=== PATIENT | male | born 1975 | race Caucasian/White ===

== ENCOUNTER 2016-08-31 05:38 | Outpatient (CLI) | payer SELFPAY ==
[2016-08-31 06:10] LABS: BASOPHILS 0.3 % (0-2); EOSINOPHILS 2.6 % (0-7); HEMATOCRIT 51.7 % (42.0-54.0); HEMOGLOBIN 17.6 g/dL (13.5-17.5); IMMATURE GRANULOCYTES 0.3 % (0-5); LYMPHOCYTES 19.2 % (15-50); MCH 31.2 pg (26.0-34.0); MCV 91.7 fL (80.0-100.0); MEAN PLATELET VOLUME 10.8 fL (7.4-10.4); MONOCYTES 10.7 % (2-11); NEUTROPHILS 66.9 % (40-80); PLATELET COUNT 242 10x3/uL (130-400); RBC 5.64 10x6/uL (4.20-6.10); RDW 13.6 % (11.5-14.5); WBC 11.4 10x3/uL (4.8-10.8)
[2016-08-31 06:27] LABS: ALBUMIN 3.7 g/dL (3.4-5.0); ALKALINE PHOSPHATASE 38 U/L (46-116); ALT (SGPT) 35 U/L (10-68); BILIRUBIN - TOTAL 0.73 mg/dL (0.2-1.3); CALC OSMOLALITY 277 mosm/kg (275-300); CALCIUM 8.7 mg/dL (8.5-10.1); CARBON DIOXIDE 28.3 mmol/L (21.0-32.0); CHLORIDE - SERUM 105 mmol/L (98-107); GLUCOSE 96 mg/dL (74-106); POTASSIUM - SERUM 3.8 mmol/L (3.5-5.1); PROTEIN - SERUM 6.9 g/dL (6.4-8.2); SODIUM 140 mmol/L (136-145); UREA NITROGEN 11 mg/dL (7-18); eGFR NON AFRICAN AMERICAN 87 mL/min (90-120)
[2016-08-31 06:51] LABS: CKMB 1.1 U/L (0.0-3.6); CREATINE KINASE 152 UL (21-232)
[2016-08-31 06:52] LABS: TROPONIN-I < 0.017 ng/mL (0.000-0.060)
[2016-08-31] MEDS ORDERED: LOPRESSOR25 MG PO (07:47)
[2016-08-31] MEDS ORDERED: SYNTHROID25 MCG PO (07:48)
[2016-08-31 12:13] LABS: CREATINE KINASE 137 UL (21-232)
[2016-08-31 12:16] LABS: TROPONIN-I < 0.017 ng/mL (0.000-0.060)
== END 2016-08-31 16:45 | disposition home or self-care (01) ==
LOC: D.ER 05:38 → D.M2 07:25
PROVIDERS: Emergency Medicine
DX: I20.0 Unstable angina (principal); I10 Essential (primary) hypertension; Z01.812 Encounter for preprocedural laboratory examination

== ENCOUNTER 2017-01-19 19:13 | Emergency (ER) | payer SELFPAY ==
[2016-08-31 08:09] VITALS: BMI 33.1
[~2017-01-19 19:13] MED LIST: LOPRESSOR25 MG PO; SYNTHROID25 MCG PO
[2017-01-19 19:51] LABS: BASOPHILS 0.2 % (0-2); EOSINOPHILS 3.3 % (0-7); HEMATOCRIT 48.7 % (42.0-54.0); IMMATURE GRANULOCYTES 0.3 % (0-5); LYMPHOCYTES 30.1 % (15-50); MCH 31.4 pg (26.0-34.0); MCHC 34.9 g/dL (31.0-37.0); MEAN PLATELET VOLUME 10.9 fL (7.4-10.4); NEUTROPHILS 57.1 % (40-80); PLATELET COUNT 235 10x3/uL (130-400); RBC 5.41 10x6/uL (4.20-6.10); RDW 13.4 % (11.5-14.5); WBC 9.7 10x3/uL (4.8-10.8)
[2017-01-19 20:07] LABS: ALBUMIN 3.6 g/dL (3.4-5.0); ALKALINE PHOSPHATASE 42 U/L (46-116); ALT (SGPT) 38 U/L (10-68); CALC OSMOLALITY 280 mosm/kg (275-300); CALCIUM 8.8 mg/dL (8.5-10.1); CARBON DIOXIDE 28.5 mmol/L (21.0-32.0); CHLORIDE - SERUM 105 mmol/L (98-107); CREATININE - SERUM 1.1 mg/dL (0.6-1.3); GLUCOSE 122 mg/dL (74-106); PROTEIN - SERUM 6.9 g/dL (6.4-8.2); SODIUM 141 mmol/L (136-145); UREA NITROGEN 11 mg/dL (7-18); eGFR NON AFRICAN AMERICAN 78 mL/min (90-120)
[2017-01-19 20:17] LABS: CHOL - HDL RATIO 4.3 ratio (2.3-4.9); CHOLESTEROL, TOTAL 165 mg/dL (0-200); CKMB 0.1 U/L (0.0-3.6); CREATINE KINASE 105 UL (21-232); HDL CHOLESTEROL 38 mg/dL (32-96); LDL CHOLESTEROL 103 mg/dL (0-100); LDL-HDL RATIO 2.7 ratio (1.5-3.5); TRIGLYCERIDE 120 mg/dL (30-200)
[2017-01-19 20:18] LABS: TROPONIN-I < 0.017 ng/mL (0.000-0.060)
== END 2017-01-19 22:05 | disposition home or self-care (01) ==
LOC: D.ER 19:13
PROVIDERS: Emergency Medicine
DX: R07.89 Other chest pain (principal); I10 Essential (primary) hypertension; E03.9 Hypothyroidism, unspecified

== ENCOUNTER 2017-09-19 01:51 | Observation (INO) | payer SELFPAY ==
[~2017-09-19] VITALS: Ht 188 cm; Wt 111.4 kg
--- NOTE | ~2017-09-19 | HP ---
PATIENT: DRE MOBLEY MEDICAL RECORD: [id number] ACCOUNT: [id number] LOCATION:[address] : 73 ADMISSION DATE: 09/19/17 HISTORY AND PHYSICAL EXAMINATION DIAGNOSES: 1. Left upper quadrant pain radiating to the chest. 2. Hypertension. 3. Hypothyroidism, on replacement. HISTORY OF PRESENT ILLNESS: This is a gentleman who presents with chest pain. It really starts in his left upper quadrant, radiates to his left chest area. It was quite severe around the left upper quadrant. It was a sharp stabbing pain, was not associated with food intake. It was not positional at all. As well this morning, he has had left face numbness and some blurred vision. This is a new problem. The abdominal pain has been present for the past 2 days. He has only a history of cholecystectomy 1 year ago. No other abdominal history. He does have a history of a cardiac catheterization 1 year ago that was with normal vessels. PHYSICAL EXAMINATION: GENERAL APPEARANCE: Well-nourished, well-developed, appears stated age. Level of distress, comfortable. PSYCHIATRIC: Mental status, alert, normal affect. Orientation, oriented to time, place and person. EYES: Lids and conjunctiva, noninjected. No discharge, no pallor. ENT: Lips, teeth, gums, normal dentition. Oropharynx, no cyanosis, no pallor. NECK: Carotid arteries, bilateral normal upstroke, no bruits, no thrills. JUGULAR VEINS: No jugular venous pressure or distention. CERVICAL LYMPH NODES: Nontender, nonenlarged. THYROID: Not enlarged. Nontender. No nodules. LUNGS: Respiratory effort, unlabored. CHEST: Normal curvature. No thoracic deformity. No chest wall tenderness. Percussion, resonant. Auscultation, clear. No wheezes, no rales, no rhonchi. CARDIOVASCULAR: Precordial exam, nondisplaced. No heaves or pericardial thrills. Rate and rhythm, regular. Heart sounds, normal S1, normal S2. No S3, no gallop, no rub. Systolic murmur, not heard. Diastolic murmur, not heard. EXTREMITIES: No cyanosis, no edema. Peripheral pulses, full and equal in all extremities, except as noted. No bruits appreciated. ABDOMEN: Soft, nondistended. Normal aorta. No bruit. Nontender. No masses. Liver, nontender, no hepatomegaly. Spleen, nontender, no splenomegaly. MUSCULOSKELETAL: No joint tenderness. No joint swelling. No erythema. NEUROLOGICAL: Normal gait, normal strength, normal tone. SKIN: Warm and dry. REVIEW OF SYSTEMS: The patient reports easy bruising but reports no swollen glands. The patient reports no fever, no night sweats, no significant weight gain, no significant weight loss. No significant exercise tolerance. The patient reports no dry eyes, no irritation, no vision change. Patient reports no difficulty hearing and no ear pain. Patient reports no frequent nose bleeds or nose and sinus problems. Patient reports on arm pain on exertion. No shortness of breath while lying down. No history of heart murmur. Patient reports no cough, no wheezing or coughing up blood. Patient reports no abdominal pain, no vomiting. Normal appetite. No diarrhea and not vomiting blood. No nausea and no constipation. Patient reports no incontinence. No HISTORY AND PHYSICAL [id number] DRE MOBLEY A difficulty urinating. No hematuria. No increased frequency. Patient reports no muscle aches. No weakness, no arthralgias, no back pain. No swelling of the extremities. Patient reports no abnormal mole, no jaundice, no rashes. Reports no loss of consciousness. No weakness and no numbness. No seizures, dizziness, or headaches. The patient reports no depression, no sleep disturbance, feeling safe in a relationship and no alcohol abuse. Patient reports on fatigue. Reports no runny nose or sinus pressure. No itching, no hives, and no frequent sneezing. OVERALL IMPRESSION: Abdominal pain. No real chest pain. It is centered around his left upper quadrant. We will get an abdominal CT and due to the numbness in the face and the visual disturbances which very well may be positional, looked like he was lying last night in the hospital bed, we will get a head CT as well. Further care depends upon the findings of these studies. TRANSINT:[id number] Voice Confirmation ID: [id number] DOCUMENT ID: [id number] MARYANN HELLER MD at 1242 CC: [id number] DICTATION DATE: 09/19/17911 FEDERAL JUDGE: 09/19/17 1022 [facility] IN [place] [address] [place] [address]
[2017-09-19 04:29] VITALS: BP 101/66; Ht 188 cm; Wt 111.4 kg
[2017-09-19 07:59] VITALS: BP 104/59
[2017-09-19 12:08] VITALS: BP 122/88
== END 2017-09-19 15:11 | disposition home or self-care (01) ==
LOC: D.SDCHOLD 01:51 → OBSVTIME 01:51 → D.SDCHOLD 02:29 → D.M2 02:29 → OBSVTIME 02:29 → D.M2 15:11
DX: R10.12 Left upper quadrant pain (principal); I10 Essential (primary) hypertension; E03.9 Hypothyroidism, unspecified; H53.8 Other visual disturbances; R20.0 Anesthesia of skin

== ENCOUNTER 2019-01-01 02:16 | Observation (INO) | payer OTHER ==
[2019-01-01] VITALS (9 sets, daily range): BP systolic 120–142; BP diastolic 76–97; Ht 188 cm; Wt 118.2 kg
[~2019-01-01] VITALS: Ht 188 cm; Wt 118.2 kg
--- NOTE | ~2019-01-01 | HEMODYNAMI ---
PATIENT:DRE MOBLEY MEDICAL RECORD: [id number] : 73 LOCATION:[address] ADMISSION DATE: 01/01/19 Generatedon:01/02/20198:59 Patient name: DRE MOBLEY Patient #: [id number] : 1975 Date of study: 01/02/2019 Page: Of Hemodynamic Procedure Report Patient Data Patient Demographics Procedure consent was obtained First Name: DRE Gender: Male Last Name: ITZ : 1975 Middle Initial: A Age: 43 year(s) Patient #: [id number] Race: SSN: [id number] Additional ID: [id number] Contact details [address]: [address] [place] [address] State: [place] City: [place] Zip code: [address] Past Medical History Allergies Allergen Reaction Date Comments Reported Other allergy 08/31/2016 dilaudid, penecillin Other allergy 01/02/2019 PCN, DILAUDID, DEMEROL Admission Admission Data Admission Date: 01/01/2019 Admission Time: 4:15 Room #: D.2128 Insurance Payor: Private health insurance [facility] #: [id number] Height (in.): 74 BSA: 2.43 (m2) Height (cm.): 187.96 BMI: 33.4 (kg/m2) Weight (lbs.): 260.15 Weight (kg.): 118 Lab Results Lab Result Date: 01/02/2019 Lab Result Time: 0:00 Biochemistry Name Units Result Min Max BUN mg/dl 9 --(*---)-- 7 18 Creatinine mg/dl 1.1 --(--*-)-- 0.6 1.3 eGFR ml/min 76.05189 *-(----)-- 90 120 NONAFRICAN CBC Name Units Result Min Max Hematocrit % 50.5 --(--*-)-- 42 54 Hemoglobin g/dl 18.2 --(----)*- 13.5 17.5 Procedure Procedure Types Cath Procedure Diagnostic Procedure [facility] w/Coronaries FFR/IVUS FFR Initial Sedation Charges Moderate Sedation up to 15 minutes Procedure Description Procedure Date Procedure Date: 01/02/2019 Procedure Start Time: 8:38 Procedure End Time: 8:56 Procedure Staff Name Function Baudilio Thomas MD Performing Physician Judy Velazquez RT Monitor Ana Hawley RN Nurse Cj Conley RT Scrub Alexia Barroso RT Scrub Procedure Data Cath Procedure Fluoroscopy Diagnostic fluoroscopy Total fluoroscopy Time: 6.4 time: 6.4 min min Diagnostic fluoroscopy Total fluoroscopy dose: 474 dose: 474 mGy mGy Contrast Material Contrast Material Type Amount (ml) Isovue 300 86 Entry Location Entry Primary Successful Side Size Upsize Upsize Entry Closure Salas ccessful Closure Location (Fr) 1 (Fr) 2 (Fr) Remarks Device Remarks Radial Right 6 Fr Mechanical artery Short Compression Estimated blood loss: 10 ml Diagnostic catheters Device Type Used For End Catheter Placement DIAGNOSTIC Eaton 110cm 5 Procedure Fr catheter ([id number]) Procedure Complications No complications Procedure Medications Medication Administration Route Dosage 0.9% NaCl I.V. 100 ml/hr Oxygen etCO2 Nasal cannula 2 l/min Lidocaine 2% added to field 20 Heparin Flush Bag added to field 2 bags (1000units/500ml NS) Radial Cocktail added to field 1 syringe (Verapamil 2mg/Nitro 400mcg/Heparin 1500units) Versed I.V. 2 mg Fentanyl I.V. 50 mcg Hemodynamics Rest BSA: 2.43 (m2) HGB: 18.2 (g/dl) O2 Consumption: Estimated: 304.5 (ml/min) O2 Con sumption indexed: Estimated:125.31 (ml/min/m) Heart Rate: 81 (bpm) Snapshots Pre Cath Intra NCS Post Cath Vital Signs Time Heart Resp SPO2 etCO2 NIBP (mmHg) Rhythm Pain Sedation Rate (ipm) (%) (mmHg) Status Level (bpm) 8:22:00 76 14 99 30.1 152/99(125) NSR 0 (11) 10(A) , No pain 8:26:20 76 17 97 36.1 156/107(126) NSR 0 (11) 10(A) , No pain 8:30:44 79 18 97 43.6 155/86(125) NSR 0 (11) 10(A) , No pain 8:35:10 74 14 98 37.6 168/88(157) NSR 0 (11) 10(A) , No pain 8:39:35 73 16 97 44.4 156/98(130) NSR 0 (11) 9(A) , No pain 8:43:47 80 15 98 43.6 140/90(105) NSR 0 (11) 9(A) , No pain 8:48:07 76 16 99 41 137/91(110) NSR 0 (11) 9(A) , No pain 8:52:27 75 16 98 39.8 151/86(111) NSR 0 (11) 10(A) , No pain Medications Time Medication Route Dose Verified Delivered Reason Notes Ef fectiveness by by 8:29:23 0.9% NaCl I.V. 100 Baudilio Ana used for ml/hr William Hawley fuse coiler 8:29:29 Oxygen etCO2 2 l/min Baudilio Ana used for Nasal William Hawley procedure cannula RN 8:29:35 Lidocaine 2% added 20ml Baudilio Baudilio for local to vial William Thomas MD anesthetic field 8:29:38 Heparin Flush added 2 bags Baudilio Baudilio used for Bag to William Thomas MD procedure (1000units/500ml field NS) 8:29:44 Radial Cocktail added 1 Baudilio Baudilio used for (Verapamil to syringe William Thomas MD procedure 2mg/Nitro field 400mcg/Heparin 1500units) 8:37:43 Versed I.V. 2 mg Baudilio Aan for Wililam Hawley sedation RN 8:37:54 Fentanyl I.V. 50 mcg Baudilio Ana for William Hawley sedation lathe winder Log Time Note 8:01:07 Cj Conley RT(R) sent for patient. Start room use. 8:01:08 Time tracking: Regular hours (M-F 7:00 - 5:00) 8:01:12 Plan of Care:Hemodynamics will remain stable., Cardiac rhythm will remain stable., Comfort level will be maintained., Respiratory function will remain adequate., Patient/ family verbilizes understanding of procedure., Procedure tolerated without complication., Recovers from procedure without complications.. 8:03:36 Procedure Status Urgent Heart Cath (IP). 8:07:05 Lab Result : BUN 9 mg/dl 8:07:05 Lab Result : Creatinine 1.1 mg/dl 8:07:05 Lab Result : eGFR NONAFRICAN 76.39164 ml/min 8:07:05 Lab Result : Hemoglobin 18.2 g/dl 8:07:05 Lab Result : Hematocrit 50.5 % 8:07:14 Patient Weight : 260.15 lbs 8:07:17 Patient Height : 74 inches 8:09:17 Patient allergic to Other allergyPCN, DILAUDID, DEMEROL 8:10:17 Insurance Payor : Private health insurance 8:13:13 Patient received from Med II to CCL 3 Alert and oriented. Tansferred to table in Supine position. 8:13:16 Warm blankets applied, and tang hugger turned on for patient comfort. 8:13:18 Signed procedure consent form obtained from patient. 8:13:19 Correct patient and procedure confirmed by team. 8:13:19 ECG and BP/O2 sat monitors applied to patient. 8:18:34 H&P Date Dictated: 01/01/2019 Within 30 days and on chart.. 8:18:35 Pre-procedure instructions explained to patient. 8:18:35 Pre-op teaching completed and patient verbalized understanding. 8:18:37 Family in patients room. 8:18:38 Patient NPO since Midnight. 8:18:39 Is the patient allergic to Iodine/contrast media? No. 8:18:49 Is patient on blood thinner?No 8:18:52 Patient diabetic? No. 8:19:09 Previous problem with sedation/anesthesia? No ? 8:19:10 Snore? Yes 8:19:11 Sleep apnea? No 8:19:12 Deviated septum? No 8:19:13 Opens mouth fully? Yes 8:19:13 Sticks out tongue? Yes 8:19:15 Airway obstruction? No ? 8:19:17 Dentures? No ? 8:19:24 Pre procedure: right dorsailis pedis pulse 1+ Palpable, but thready & weak; easily obliterated 8:19:27 Modified Smooth's test Ulnar < 7 seconds 8:19:28 Patient pain scale 0/10 ?. 8:19:36 IV patent on arrival in right forearm with 0.9% NaCl at [facility]. 8:19:43 Lab results completed and on chart. 8:19:53 Right Radial & Right Groin area was prepped with chlora-prep and draped in sterile fashion 8:19:54 Alarms reviewed by R. N. 8:19:54 Sharps counted by scrub and verified by R.N. 8:19:59 Use device set Radial Dx or PCI 8:20:00 Tegaderm 4 x 4 ([id number]) opened to sterile field. 8:20:01 ACIST Manifold (38662) opened to sterile field. 8:20:01 ACIST Hand Control (35867) opened to sterile field. 8:20:02 Bag Decanter (2002S) opened to sterile field. 8:20:03 Medline Cath Pack ([id number]) opened to sterile field. 8:20:03 ACIST Syringe (97150) opened to sterile field. 8:20:08 MBrace Wrist Support ([id number]) opened to sterile field. 8:20:15 EMERALD Guide Wire (628-193) opened to sterile field. 8:20:18 SHEATH 6FR RAIN (2337284) opened to sterile field. 8:20:34 Vital chart was started 8:20:37 Baseline sample Acquired. 8:20:40 Rhythm: sinus rhythm 8:20:46 Full Disclosure recording started 8:29:23 0.9% NaCl 100 ml/hr I.V. was administered by Ana Hawley RN; used for procedure; 8:29:29 Oxygen 2 l/min etCO2 Nasal cannula was administered by Ana Hawley RN; used for procedure; 8:29:35 Lidocaine 2% 20ml vial added to field was administered by Baudilio Thomas MD; for local anesthetic; 8:29:38 Heparin Flush Bag (1000units/500ml NS) 2 bags added to field was administered by Baudilio Thomas MD; used for procedure; 8:29:44 Radial Cocktail (Verapamil 2mg/Nitro 400mcg/Heparin 1500units) 1 syringe added to field was administered by Baudilio Thomas MD; used for procedure; 8:30:22 Physician paged 8:36:45 --------ALL STOP TIME OUT------ 8:36:45 Final Timeout: patient, procedure, and site verified with staff and physician. All members of the team are in agreement. 8:36:47 Right Radial & Right Groin site verified by team. 8:36:51 Fire Safety Assessment: A--An alcohol-based skin anteseptic being used preoperatively., C--Open oxygen or nitrous oxide is being used., D--An ESU, laser, or fiber-optic light is being used. 8:36:53 Physical assessment completed. ASA score P 2 - A patient with mild systemic disease as per Baudilio Thomas MD. 8:36:55 2) 60-89 Mildly reduced kidney function, and other findings (as for stage 1) point to kidney disease. 8:37:11 Maximum allowable contrast dose (3.7 X eGFR X 0.75)202 ml. 8:37:14 Sedation plan: IV Moderate Sedation Medication:Versed, Fentanyl 8:37:43 Versed 2 mg I.V. was administered by Ana Hawley RN; for sedation; 8:37:54 Fentanyl 50 mcg I.V. was administered by Ana Hawley RN; for sedation; 8:38:39 Procedure started. 8:38:48 Local anesthetic to right radial artery with Lidocaine 2% by Baudilio Thomas MD.INITIAL ACCESS ONLY 8:39:33 A 6 Fr Short sheath was inserted into the Right Radial artery 8:39:47 A DIAGNOSTIC Eaton 110cm 5 Fr catheter ([id number]) was advanced over the wire and used for Procedure. 8:40:58 LV gram done using CORREIA 8:41:32 Injector settings: Ml/sec: 5, Volume: 15, 8:41:50 EF : 60 % 8:43:03 RCA angiography performed. 8:43:05 Catheter exchanged over wire. 8:43:12 GUIDE 6FR XBLAD 3.5 catheter ([id number]) opened to sterile field. 8:44:10 6 Fr XBLAD 3.5 guide catheter was inserted over the wire 8:45:11 LCA angiography performed. 8:46:10 Oldham Verrata Plus pressure wire (25910C) opened to sterile field. 8:46:10 INFLATOR Merit BasixCompak (SP0746) opened to sterile field. 8:49:42 Guide Catheter removed. unable to cannulate vessel. 8:50:24 6 Fr XBLAD 4 guide catheter was inserted over the wire 8:51:57 FFR/IFR wire advanced. 8:52:13 Wire advanced across lesion. 8:52:51 mLAD lesion measured at .95 with IFR 8:53:03 Wire removed. 8:53:03 Guide catheter removed. 8:53:10 Procedure ended.(Physican Out) 8:53:24 ZEPHYR REGULAR TR BAND (167898) opened to sterile field. 8:53:43 Sheath removed intact; hemostasis achieved with Mechanical Compression to the Right Radial artery. 8:53:50 Fluoroscopy time 06.40 minutes. 8:53:56 Fluoroscopy dose: 474 mGy 8:53:56 Flurop Dose total: 474 8:54:13 Contrast amount:Isovue 300 86ml. 8:54:15 Maximum allowable dose exceeded? No. 8:54:16 Sharps counted by scrub and verified by R.N. 8:54:18 Vina band inflated with 7cc of air. 8:54:20 Post-procedure physical assessment completed. ASA score P 2 - A patient with mild systemic disease as per Baudilio Thomas MD. 8:54:25 Post procedure rhythm: sinus rhythm 8:54:29 Estimated blood loss: 10 ml 8:54:30 Post procedure instruction explained to patient.Patient verbalizes understanding. 8:54:30 Patient needs reinforcement of post procedure teaching. 8:54:53 Procedure type changed to Cath procedure, Diagnostic procedure, LHC, LHC w/Coronaries, FFR/IVUS, FFR Initial, Sedation Charges, Moderate Sedation up to 15 minutes 8:55:38 Procedure and supply charges have been captured, reviewed, submitted and are correct. 8:55:40 Procedure Complication : No complications 8:55:42 Vital chart was stopped 8:56:23 See physician's report for complete and final results. 8:56:37 Report given to Med II. 8:56:40 Patient transfered to Med II with Bed. 8:56:42 Procedure ended. 8:56:42 Full Disclosure recording stopped 8:56:46 End room use (Document Last) Device Usage Item Name Manufacture Quantity Catalog Hospital Part Current Mini mal Lot# / Number Charge Number Stock Stock Serial# Code Tegaderm 4 3M 1 1626W [id number] 5 x 4 (1626W) ACIST Acist 1 30677 851718 989096 602176 5 Manifold Medical (88713) Systems Inc ACIST Hand Acist 1 14931 798199 376425 590942 5 Control Medical (24727) Systems Inc Bag Microtek 1 2001S 079165 08936 131729 5 Decanter Medical Inc. (2001S) Medline Medline 1 [id number] 492330 62703 891630 5 Cath Pack ([id number]) ACIST Acist 1 27991 602862 356067 329536 20 Syringe Medical (53696) Systems Inc MBrace Advanced 1 140-0250-00 049054 54036 529139 5 Wrist Vascular Support Dynamics (279166309) EMERALD Cardinal 1 218-345 879755 883431 693435 5 Guide Wire Health (126-026) SHEATH 6FR Cardinal 1 9760722 730976 2301211 312663 5 RAIN Health (7846686) DIAGNOSTIC Terumo 1 40-9515 601857 158890 121733 5 Eaton 110cm 5 Fr catheter (112785) GUIDE 6FR Cardinal 1 [id number] 560534 590206 810085 10 XBLAD 3.5 Health catheter (48011039) Oldham Oldham 1 80179A 420400 422336050 585270 5 Verrata Plus pressure wire (09490G) INFLATOR Merit 1 OQ9968 636201 393422 959281 15 [facility] Medical BasixCompak (OQ4607) ZEPHYR Cardinal 1 936715 552936 2302887 606451 5 REGULAR TR Health BAND (576806) Signature Audit [place] Stage Time Signature Unsigned Intra-Procedure 01/02/2019 Judy Velazquez 8:59:06 AM RT(R) Signatures Performing Physician : Signature : Baudilio Thomas MD Date : Time : Monitor : Judy Velazquez Signature : RT Date : Time : Nurse : Ana Hawley RN Signature : Date : Time : [address] [place] [address]
[2019-01-01 02:55] LABS: BASOPHILS 0.3 % (0-2); EOSINOPHILS 2.2 % (0-7); HEMATOCRIT 50.5 % (42.0-54.0); HEMOGLOBIN 18.2 g/dL (13.5-17.5); IMMATURE GRANULOCYTES 0.3 % (0-5); LYMPHOCYTES 17.4 % (15-50); MCH 32.3 pg (26.0-34.0); MCV 89.5 fL (80.0-100.0); MEAN PLATELET VOLUME 10.3 fL (7.4-10.4); MONOCYTES 9.9 % (2-11); NEUTROPHILS 69.9 % (40-80); PLATELET COUNT 254 10x3/uL (130-400); RBC 5.64 10x6/uL (4.20-6.10); WBC 14.9 10x3/uL (4.8-10.8)
[2019-01-01 03:06] LABS: APTT 28.6 SECONDS (22.8-39.4); INR 0.98 (0.85-1.17); PROTIME 12.5 SECONDS (11.6-15.0)
[2019-01-01 03:23] LABS: ALBUMIN 3.8 g/dL (3.4-5.0); ALKALINE PHOSPHATASE 52 U/L (46-116); ALT (SGPT) 30 U/L (10-68); AMYLASE - SERUM 31 U/L (25-115); BILIRUBIN - TOTAL 0.55 mg/dL (0.2-1.3); CALC OSMOLALITY 274 mosm/kg (275-300); CARBON DIOXIDE 31.5 mmol/L (21.0-32.0); CHLORIDE - SERUM 100 mmol/L (98-107); CKMB 0.5 U/L (0.0-3.6); CREATINE KINASE 133 UL (21-232); CREATININE - SERUM 1.1 mg/dL (0.6-1.3); GLUCOSE 95 mg/dL (74-106); LIPASE 177 U/L (73-393); MAGNESIUM - SERUM 1.6 mg/dL (1.8-2.4); POTASSIUM - SERUM 3.8 mmol/L (3.5-5.1); PROTEIN - SERUM 7.6 g/dL (6.4-8.2); SODIUM 138 mmol/L (136-145); TROPONIN-I < 0.017 ng/mL (0.000-0.060); UREA NITROGEN 9 mg/dL (7-18); eGFR NON AFRICAN AMERICAN 77 mL/min (90-120)
[2019-01-01 09:42] LABS: CKMB 0.5 U/L (0.0-3.6); CREATINE KINASE 108 UL (21-232); TROPONIN-I < 0.017 ng/mL (0.000-0.060)
[2019-01-01 15:20] LABS: CKMB 0.4 U/L (0.0-3.6); CREATINE KINASE 111 UL (21-232)
[2019-01-01 15:23] LABS: TROPONIN-I < 0.017 ng/mL (0.000-0.060)
[2019-01-02] VITALS: BP 142/92
[2019-01-02 04:00] VITALS: BP 132/87
--- NOTE | 2019-01-02 08:57 | HP ---
PATIENT: DRE MOBLEY MEDICAL RECORD: [id number] ACCOUNT: [id number] LOCATION:[address] : 73 ADMISSION DATE: 01/01/19 PCP: ONDINA AYALA DO HISTORY AND PHYSICAL EXAMINATION ADMITTING DIAGNOSES: 1. Chest pain compatible with angina. 2. Shortness of breath - dyspnea on exertion. 3. Hypertension. 4. Family history of coronary artery disease. HISTORY OF PRESENT ILLNESS: Mr. Mobley was seen by Dr. Bocanegra with increasing episodes of chest discomfort. He was set for a stress test; however, he has had progression of his chest discomfort. He is having episodes at rest at this point. However, his EKG is normal. Troponin is normal. He is on Lopressor. His systolic blood pressure is in the 120s. Heart rate is in the 60s. PHYSICAL EXAMINATION: CONSTITUTIONAL/GENERAL APPEARANCE: Well nourished, well developed, appears stated age. EYES: Lids and conjunctivae noninjected. No discharge. No pallor. ENT: Lips within normal limit. No cyanosis. No pallor. NECK: Carotid arteries, bilateral normal upstroke. No bruits. No thrills. No jugular venous pressure or distention. CERVICAL LYMPH NODES: Nontender. Nonenlarged. THYROID: Not enlarged. No nodules. CARDIOVASCULAR: Precordial exam, nondisplaced. No heaves or pericardial thrills. Rate and rhythm, regular. Heart sounds, normal S1, normal S2. No S3, no gallop, no rub. Systolic murmur, not heard. Diastolic murmur, not heard. RESPIRATORY: Respiratory effort, unlabored. Normal curvature. No thoracic deformity. No chest wall tenderness. Percussion, resonant. Auscultation, clear. No wheezes, no rales, no rhonchi. ABDOMEN: Soft, nondistended, nontender. No abdominal pain, no vomiting and normal appetite. MUSCULOSKELETAL: No joint tenderness, normal gait, normal tone. SKIN: Warm and dry. OVERALL IMPRESSION: Chest pain compatible with angina in an escalating unstable fashion. No objective evidence of hemodynamically significant coronary artery disease. We will risk stratify with stress testing, Cardiolite imaging as the initial plan. Further care depends upon the findings of the stress test. TRANSINT:[id number] Voice Confirmation ID: [id number] DOCUMENT ID: [id number] MARYANN HELLER MD at 0857 CC: [id number] DICTATION DATE: 01/01/19 1016 ARCHITECTURAL JOB CAPTAIN: 01/01/19 1041 ADM IN [place] [id number] [place] [id number]
--- NOTE | 2019-01-02 08:57 | ST ---
PATIENT:DRE MOBLEY MEDICAL RECORD: [id number] SEX: M LOCATION:D. D.212 ORDER #: ADMISSION DATE: 01/01/19 AGE OF PATIENT: 43 REFERRING PHYSICIAN: INTERPRETING PHYSICIAN: MARYANN HELLER MD DATE OF SERVICE: 01/01/2019 PROCEDURE: Nuclear stress test. INDICATION: Progressive angina. He was exercised on standard Lexiscan protocol with 30 mCi of sestamibi injected at peak stress, 10 mCi used previously for rest images. FINDINGS: Gated SPECT reveals preserved ejection fraction at 62% with good wall motioning and thickening and brightening throughout all segments. SPECT Imaging: Cardiolite was used as a myocardial perfusion agent. There is reversibility anteriorly, this includes the basal, mid, and apical anterior segments. The degree of reversibility is mild. The amount of myocardium involved is moderate. OVERALL IMPRESSION: 1. This is an intermediate risk nuclear stress test, reversibility throughout the anteroapical segments. 2. Gated SPECT reveals preserved ejection fraction at 62%. In this patient with ongoing symptomatology, the current scan does suggest the presence of hemodynamically significant coronary artery disease. TRANSINT:[id number] Voice Confirmation ID: [id number] DOCUMENT ID: [id number] MARYANN HELLER MD at 0857 CC: [id number] DICTATION DATE: 01/01/19 1508 COMMERCIAL INTELLIGENCE MANAGER: 01/02/19 0051 ADM IN [place] [id number] [place] [id number]
--- NOTE | 2019-01-02 09:11 | MORECARE ---
CASE MANAGEMENT DISCHARGE SUMMARY PATIENT: DRE MOBLEY UNIT: [id number] ADM DATE: 01/01/19 AGE: 43 : [birth year] SEX: M ROOM/BED: D.2128 AUTHOR: NANCY SANDRA PHYSICIAN: REFERRING PHYSICIAN: MARYANN HELLER MD DATE OF SERVICE: 01/02/19 Discharge Plan Patient Name: DRE MOBLEY Facility: [facility]:[place] : 1975 Planned Disposition: Home Anticipated Discharge Date: 01/02/19 Discharge Date: Expected LOS: 1 Initial Reviewer: [id number] Initial Review Date: 01/02/2019 Generated: 01/02/19 10:11 am Patient Name: DRE MOBLEY Page 42304 at 0911 All edits/amendments must be made on the electronic document DICTATION DATE: 01/02/19910 INSTALLATION SUPERINTENDENT: CARLY 01/02/19910 RPT#: [id number] DC DATE: STATUS: ADM IN [facility] [address] [place] [address] END OF REPORT
[2019-01-02] MEDS ORDERED: PROTONIX40 MG PO (13:13)
[2019-01-02] MEDS ORDERED: CARAFATE1 G PO (13:13)
--- NOTE | 2019-01-03 10:47 | OP ---
PATIENT NAME: DRE MOBLEY MEDICAL RECORD: [id number] :73 LOCATION:D.M2 D.2128 ADMISSION DATE:01/01/19 SURGEON: MARYANN HELLER MD DATE OF OPERATION: 01/02/2019 PROCEDURES: 1. Left heart catheterization. 2. Selective coronary angiography. 3. Left ventriculogram. 4. IFR. INDICATION: Chest pain compatible with angina and abnormal nuclear stress test. PROCEDURE IN DETAIL: After informed consent was obtained and after a detailed description of risks, benefits as well as alternative therapies, the patient elected to proceed with angiogram and heart catheterization. The right radial area was prepped and draped in normal sterile fashion. Right radial artery was cannulated via modified Seldinger technique with placement of 6-Rwandan sheath. All catheters exchanged through this sheath. FINDINGS: The left ventriculogram was performed in standard 30-degree CORREIA view, reveals good cardiac wall motion throughout all segments. Overall ejection fraction estimated 60%. SELECTIVE CORONARY ANGIOGRAPHY: Left main, left anterior descending, left circumflex, right coronary artery are all smooth-walled vessels with no angiographic evidence of coronary artery disease. OVERALL IMPRESSION: 1. No angiographic evidence of coronary artery disease. 2. Normal left heart pressures. 3. Normal left ventricular systolic function. Chest pain is noncardiac in etiology. No further cardiac workup needs to be ascertained. TRANSINT:[id number] Voice Confirmation ID: [id number] DOCUMENT ID: [id number] MARAYNN HELLER MD at 1047 CC: [id number] DICTATION DATE: 01/02/19 0855 HOTEL BREAKFAST ATTENDANT: 01/02/19 0907 DIS IN 01/02/19 [place] [address]
--- NOTE | 2019-01-03 10:47 | OP ---
PATIENT NAME: DRE MOBLEY MEDICAL RECORD: [id number] :73 LOCATION:[id number] ADMISSION DATE:01/01/19 SURGEON: MARYANN HELLER MD DATE OF OPERATION: 01/02/2019 ADDENDUM After selective coronary angiography before impression. IFR was performed of the LAD secondary to the perfusion defect on nuclear stress testing, the anterior IFR was normal. Add IFR to the procedure list. TRANSINT:[id number] Voice Confirmation ID: [id number] DOCUMENT ID: [id number] MARYANN HELLER MD at 1047 CC: [id number] DICTATION DATE: 01/02/19 0857 ELECTRIC POWER SUPERINTENDENT: 01/02/19 0908 DIS IN 01/02/[address] [id number]
--- NOTE | 2019-01-21 10:37 | DS ---
PATIENT:DRE MOBLEY :73 MEDICAL RECORD: [id number] DISCHARGE SUMMARY ADMISSION DATE: 01/01/19 DISCHARGE DATE: 01/02/19 DISCHARGE DIAGNOSES: 1. Chest pain. 2. Abnormal nuclear stress test. 3. Normal cardiac catheterization. HOSPITAL COURSE: Mr. Mobley presents with chest pain and underwent nuclear stress testing for risk stratification. This suggested perfusion defect anteriorly; however, cardiac catheterization was normal. He will follow up with his primary care physician. No other cardiac workup or treatment is necessary. TRANSINT:[id number] Voice Confirmation ID: [id number] DOCUMENT ID: [id number] MARYANN HELLER MD at 1037 CC: [id number] DICTATION DATE: 01/02/19 0856 PEDIATRIC AUDIOLOGIST: 01/03/19 0001 DIS IN 01/02/19 [facility] [address] [place] [address]
== END 2019-01-02 14:23 | disposition home or self-care (01) ==
LOC: D.ER 02:16 → D.M2 04:15 → OBSVTIME 04:15 → D.M2 04:15
PROVIDERS: Family Medicine; ADMIT Internal Medicine Interventional Cardiology; ATTEND Internal Medicine Interventional Cardiology
DX: R07.9 Chest pain, unspecified (principal); R94.39 Abnormal result of other cardiovascular function study; I10 Essential (primary) hypertension; R06.00 Dyspnea, unspecified; Z82.49 Family history of ischemic heart disease and other diseases of the circulatory system

== ENCOUNTER 2019-11-10 05:17 | Day surgery (SDC) | payer BC ==
[~2019-11-10] VITALS: Ht 188 cm; Wt 114.8 kg
[~2019-11-10 05:17] MED LIST changes: +CARAFATE1 G PO; +CELEXA10 MG PO; +COZAAR25 MG PO; +FLOMAX0.4 MG PO; +LOSARTAN-HCTZ1 EAC1 PO; +PROTONIX40 MG PO
[2019-11-10 06:11] LABS: CALC OSMOLALITY 272 mosm/kg (275-300); CALCIUM 8.5 mg/dL (8.5-10.1); CARBON DIOXIDE 27.6 mmol/L (21.0-32.0); CHLORIDE - SERUM 101 mmol/L (98-107); CREATININE - SERUM 1.1 mg/dL (0.6-1.3); GLUCOSE 109 mg/dL (74-106); POTASSIUM - SERUM 3.7 mmol/L (3.5-5.1); SODIUM 136 mmol/L (136-145); UREA NITROGEN 13 mg/dL (7-18); eGFR NON AFRICAN AMERICAN 77 mL/min (90-120)
[2019-11-10 06:12] LABS: HEMATOCRIT 50.9 % (42.0-54.0); HEMOGLOBIN 17.3 g/dL (13.5-17.5); MCH 31.4 pg (26.0-34.0); MCV 92.4 fL (80.0-100.0); RBC 5.51 10x6/uL (4.20-6.10); RDW 13.5 % (11.5-14.5)
[2019-11-10 06:37] VITALS: BP 121/72; Ht 188 cm; Wt 114.8 kg
[2019-11-10] MEDS ORDERED: HYDROCODON-ACE1 EAC7 PO (09:20)
--- NOTE | 2019-11-10 11:55 | NUR ---
PATIENT AMBULATES TO BATHROOM AND VOIDS MODERATE AMOUNT IN TOILET WITHOUT DIFFICULTY. LEFT AC PIV DC'D WITH TIP INTACT. PATIENT DRESSING IN PERSONAL CLOTHING
== END 2019-11-10 12:15 | disposition home or self-care (01) ==
LOC: D.PAN 05:17 → D.OPS 08:00 → D.PAN 08:00
PROVIDERS: Anesthesiology; ATTEND Surgery
DX: K43.0 Incisional hernia with obstruction, without gangrene (principal)